=== PATIENT | female | born 1965 | race Caucasian/White ===

== ENCOUNTER 2021-08-29 09:50 | Outpatient (CLI) | payer MEDICARE, BC | END 2021-08-29 09:51 | disposition home or self-care (01) | LOC: CSHLAB 09:50 | PROVIDERS: ATTEND Family Medicine | DX: Z20.822 Contact with and (suspected) exposure to COVID-19 (principal) | CPT/HCPCS: U0003; U0005 ==

== ENCOUNTER 2021-08-31 09:15 | Outpatient (CLI) | payer MEDICARE, BC | END 2021-08-31 09:16 | disposition home or self-care (01) | LOC: CSHRAD 09:15 | PROVIDERS: ATTEND Otolaryngology Otolaryngic Allergy | DX: I69.891 Dysphagia following other cerebrovascular disease (principal); R13.11 Dysphagia, oral phase; R13.13 Dysphagia, pharyngeal phase | CPT/HCPCS: 74230 ==

== ENCOUNTER 2021-11-15 09:01 | Outpatient (CLI) | payer OTHER, BC ==
[2021-11-15] MEDS ORDERED: Iopamidol 300 61% 100 ML VIAL FS ONE (09:27)
== END 2021-11-15 09:02 | disposition home or self-care (01) ==
LOC: CSHCT 09:01
PROVIDERS: ATTEND Specialist
DX: G52.1 Disorders of glossopharyngeal nerve (principal)
CPT/HCPCS: 70492

== ENCOUNTER 2024-12-08 16:51 | Emergency (ER) | payer OTHER, BC ==
[2024-12-08 18:09] LABS: Glucose, Urine (Dipstick) Normal (Negative); Leukocyte 25 (Negative); Protein, Urine (Dipstick) Negative (Neg-Trace); Specific Gravity, Urine 1.015 (1.005-1.030)
[2024-12-08] MEDS ORDERED: Famotidine 20 MG TAB ONE (18:12)
[2024-12-08 18:19] LABS: #Basophils Less than 0.03 10x3/uL (0.0-0.2); #Eosinophils 0.27 10x3/uL (0.0-0.5); #Monocytes 0.95 10x3/uL (0.0-1.1); #Neutrophils 7.50 10x3/uL (1.5-8.4); %Basophils 0.1 % (0.0-2.0); %Eosinophils 2.4 % (0.0-6.0); %Lymphocytes 21.4 % (18.0-47.0); %Monocytes 8.5 % (0.0-10.0); %Neutrophils 67.3 % (40.0-75.0); Hematocrit 40.9 % (34.9-44.5); Hemoglobin 12.9 g/dL (12.0-15.5); Mean Corpuscular Hemoglobin 28.8 pg (27.0-33.0); Mean Corpuscular Volume 91.3 fL (81.6-98.3); Platelet Count 311 10x3/uL (150-450); Red Blood Cell (RBC) Count 4.48 10x6/uL (3.90-5.03); White Blood Cell (WBC) Count 11.15 10x3/uL (3.5-10.5)
[2024-12-08 18:28] LABS: Bacteria/HPF None Seen HPF (None Seen); CAUTI Indications for Culture Dysuria,urgency,freq; RBC/HPF None Seen HPF (0-3); Urine Culture Reflex No No; WBC/HPF 0-3 HPF (0-3)
[2024-12-08 18:32] LABS: ALT (SGPT) 21 U/L (Less than 34); AST (SGOT) 27 U/L (11-34); Albumin 4.1 g/dL (3.1-4.5); Alkaline Phosphatase 86 U/L (40-110); Anion Gap 12 mmol/L (10-20); BUN (Urea Nitrogen) 15 mg/dL (9.8-20.1); Bilirubin, Total 0.5 mg/dL (0.3-1.2); Calc. Creatinine Clearance 0 mL/min (70-130); Calcium 9.1 mg/dL (7.8-10.44); Carbon Dioxide 27 mmol/L (22-29); Chloride 104 mmol/L (98-107); Globulin 3.0 g/dL (2.4-3.5); Glucose 98 mg/dL (70-105); Lipase 61 U/L (8-78); Potassium 4.2 mmol/L (3.5-5.1); Sodium 139 mmol/L (136-145)
[2024-12-08 18:36] LABS: Troponin I Less than 0.010 ng/mL (< 0.028)
== END 2024-12-08 18:52 | disposition home or self-care (01) ==
LOC: CSHERS 16:51
DX: K44.9 Diaphragmatic hernia without obstruction or gangrene (principal); K59.00 Constipation, unspecified
CPT/HCPCS: 36415; 74176; 80053; 81001; 83605; 83690; 84484; 85025; 87426; 93005; Q0162